=== PATIENT | female | born 1995 ===

== ENCOUNTER 2020-10-11 15:49 | Emergency (ER) | payer SELFPAY ==
[2020-10-11 18:33] VITALS: BP 109/72
[2020-10-11 21:00] LABS: Alanine Aminotransferase 12 units/L (7-56); Albumin 4.5 g/dL (3.9-5); Blood Urea Nitrogen 14 mg/dL (7-17); Hemolysis Index 5
[2020-10-11 21:01] LABS: BUN/Creatinine Ratio 28
[2020-10-11 21:04] LABS: Basophils % (Auto) 0.3 % (0.0-1.8); Eosinophils % (Auto) 0.3 % (0.0-4.3); Hematocrit 30.5 % (30.3-42.9); Hemoglobin 9.3 gm/dl (10.1-14.3); Lymphocytes # (Auto) 2.1 K/mm3 (1.2-5.4); Lymphocytes % (Auto) 23.5 % (13.4-35.0); Mean Corpuscular HGB Conc 31 % (30-34); Monocytes # (Auto) 0.8 K/mm3 (0.0-0.8); Monocytes % (Auto) 8.4 % (0.0-7.3); Platelet Count 248 K/mm3 (140-440); Red Blood Count 4.77 M/mm3 (3.65-5.03); Red Cell Distribution Width 17.8 % (13.2-15.2)
[2020-10-11 21:06] LABS: Mean Corpuscular Volume 64 fl (79-97)
--- NOTE | 2020-10-11 21:22 | Emergency Department Report ---
ED Abdominal Pain HPI - General Chief Complaint: Abdominal Pain Stated Complaint: WEAK Time Seen by Provider: 10/11/20 19:56 Source: patient Mode of arrival: Ambulatory Limitations: No Limitations - History of Present Illness Initial Comments: This is a 25-year-old female without any past medical history who presents to the ED complaining of epigastric abdominal pain and lower abdominal pain x2 to 3 days. Patient states that about 3 days ago she was playing with her ring and accidentally swallowed it. Patient states that she hasn't seen n eeding a stool. Patient states that she hasn't seen any blood in the stool as well. Patient states she is also has some nausea and vomiting with fever. MD Complaint: abdominal pain Severity scale (0 -10): 10 - Related Data Previous Rx's Medication Instructions Recorded Last Taken Type Famotidine [Pepcid] 20 mg PO BID #20 tablet 10/11/20 Unknown Rx Ondansetron [Zofran ODT TAB] 8 mg PO Q12HR #30 tab.rapdis 10/11/20 Unknown Rx ED Review of Systems ROS: Stated complaint: WEAK Other details as noted in HPI Comment: All other systems reviewed and negative ED Past Medical Hx - Past Medical History Previous Medical History?: No - Medications Home Medications: Home Medications Medication Instructions Recorded Confirmed Last Taken Type Famotidine [Pepcid] 20 mg PO BID #20 tablet 10/11/20 Unknown Rx Ondansetron [Zofran ODT TAB] 8 mg PO Q12HR #30 tab.rapdis 10/11/20 Unknown Rx ED Physical Exam - General Limitations: No Limitations General appearance: alert, in no apparent distress - Head Head exam: Present: atraumatic, normocephalic - Eye Eye exam: Present: normal appearance - ENT ENT exam: Present: mucous membranes moist - Neck Neck exam: Present: normal inspection - Respiratory Respiratory exam: Present: normal lung sounds bilaterally. Absent: respiratory distress - Cardiovascular Cardiovascular Exam: Present: regular rate, normal rhythm. Absent: systolic murmur, diastolic murmur, rubs, gallop - GI/Abdominal GI/Abdominal exam: Present: soft, tenderness (Mild tenderness to palpation.), normal bowel sounds. Absent: distended, guarding, rebound, mass - Extremities Exam Extremities exam: Present: normal inspection, full ROM - Back Exam Back exam: Present: normal inspection, full ROM. Absent: CVA tenderness (R), CVA tenderness (L) - Neurological Exam Neurological exam: Present: alert, oriented X3, normal gait - Psychiatric Psychiatric exam: Present: normal affect, normal mood - Skin Skin exam: Present: warm, dry, intact, normal color. Absent: rash ED Course Vital Signs 10/11/20 10/11/20 18:32 23:32 Temperature 98.1 F Pulse Rate 93 H 74 Respiratory 18 16 Rate Blood Pressure 109/72 [Right] O2 Sat by Pulse 97 99 Oximetry ED Medical Decision Making - Lab Data Result diagrams: 10/11/20 20:25 10/11/20 20:25 - Radiology Data Radiology results: report reviewed, image reviewed CT ABDOMEN AND PELVIS WITHOUT CONTRAST INDICATION / CLINICAL INFORMATION: Patient complains of abd pain, Status-Post FB ingestion. TECHNIQUE: Axial CT images were obtained through the abdomen and pelvis without IV contrast. All CT scans at this location are performed using CT dose reduction for ALARA by means of automated exposure control. COMPARISON: None available. FINDINGS: LOWER CHEST: No significant abnormality. LIVER: No significant abnormality. GALLBLADDER: No significant abnormality. BILE DUCTS: No significant abnormality. PANCREAS: No significant abnormality. SPLEEN: No significant abnormality. ADRENALS: No significant abnormality. RIGHT KIDNEY / URETER: No significant abnormality. LEFT KIDNEY / URETER: No significant abnormality. STOMACH / SMALL BOWEL: No significant abnormality. COLON: No significant abnormality. APPENDIX: No significant abnormality. PERITONEUM: No free fluid. No free air. No fluid collection. LYMPH NODES: Reactive appearing lymph nodes noted in the right lower quadrant abdomen. No evidence of surrounding fat stranding. AORTA / ARTERIES: No significant abnormality. IVC / VEINS: No significant abnormality. URINARY BLADDER: Partially decompression or bladder. REPRODUCTIVE ORGANS: Physiologic changes are noted of the uterus with fluid in the endometrial cavity and bilateral ovaries. ADDITIONAL FINDINGS: No evidence of radiopaque retained foreign body within the abdomen. SKELETAL SYSTEM: No significant abnormality. No aggressive osseous lesions. IMPRESSION: 1. Mild reactive lymph nodes noted in the right lower quadrant abdomen may represent mesenteric adenitis. No evidence of acute appendicitis or fat stranding in the right lower quadrant. 2. Physiologic changes are noted of the uterus and bilateral ovaries. 3. No evidence of radiopaque retained foreign body within the abdomen. Signer Name: Dick Guillermo MD Signed: 10/11/2020 10:11 PM Workstation Name: [id number] Transcribed By: Dictated By: DICK GUILLERMO Electronically Authenticated By: DICK GUILLERMO Signed Date/Time: 10/11/202210 DD/ 06 - Medical Decision Making This 25-year-old female presented with foreign body/abdominal pain. Labs are within normal limits. CT scan shows no foreign bodies, see report above. Discussed findings with the patient. Discussed with patient's this could be inflammation of the bowel. Discussed appropriate increase hydration, Zofran for nausea Follow-up with a GI in 2 to 3 days. Patient was in no acute distress throughout ED stay. She was able to speak in clear sentences had no neurological deficit. Patient had no vomiting episode in the ED. Tolerate p.o. fluids. Vital signs are normal. At this time patient is safe for discharge Critical care attestation.: If time is entered above; I have spent that time in minutes in the direct care of this critically ill patient, excluding procedure time. ED Disposition Clinical Impression: Abdominal pain, Gastroenteritis Disposition: DC- TO HOME OR SELFCARE Is pt being admited?: No Does the pt Need Aspirin: No Condition: Stable Instructions: Viral Gastroenteritis, Adult, [id number], Abdominal Pain, Adult, [id number], Abdominal Pain (ED) Additional Instructions: Make sure to follow up with the primary care physician as discussed. Take all your medications as you've been prescribed. If you have any worsening symptoms or develop new symptoms please return to ED immediately. Prescriptions: Famotidine [Pepcid] 20 mg PO BID #20 tablet Ondansetron [Zofran ODT TAB] 8 mg PO Q12HR #30 tab.[email or web address] Referrals: PRIMARY CARE,MD [Primary Care Provider] - 3-5 Days [facility] [Provider Group] - 3-5 Days [facility] [Provider Group] - 3-5 Days Forms: Accompanied Note, Work/School Release Form(ED) Time of Disposition: 22:46 Print Language: GERMAN
--- NOTE | 2020-10-11 22:16 | Cat Scan Report ---
CT ABDOMEN AND PELVIS WITHOUT CONTRAST INDICATION / CLINICAL INFORMATION: Patient complains of abd pain, Status-Post FB ingestion. TECHNIQUE: Axial CT images were obtained through the abdomen and pelvis without IV contrast. All CT scans at [facility] location are performed using CT dose reduction for ALARA by means of automated exposure control. COMPARISON: None available. FINDINGS: LOWER CHEST: No significant abnormality. LIVER: No significant abnormality. GALLBLADDER: No significant abnormality. BILE DUCTS: No significant abnormality. PANCREAS: No significant abnormality. SPLEEN: No significant abnormality. ADRENALS: No significant abnormality. RIGHT KIDNEY / URETER: No significant abnormality. LEFT KIDNEY / URETER: No significant abnormality. STOMACH / SMALL BOWEL: No significant abnormality. COLON: No significant abnormality. APPENDIX: No significant abnormality. PERITONEUM: No free fluid. No free air. No fluid collection. LYMPH NODES: Reactive appearing lymph nodes noted in the right lower quadrant abdomen. No evidence of surrounding fat stranding. AORTA / ARTERIES: No significant abnormality. IVC / VEINS: No significant abnormality. URINARY BLADDER: Partially decompression or bladder. REPRODUCTIVE ORGANS: Physiologic changes are noted of the uterus with fluid in the endometrial cavity and bilateral ovaries. ADDITIONAL FINDINGS: No evidence of radiopaque retained foreign body within the abdomen. SKELETAL SYSTEM: No significant abnormality. No aggressive osseous lesions. IMPRESSION: 1. Mild reactive lymph nodes noted in the right lower quadrant abdomen may represent mesenteric adeni tis. No evidence of acute appendicitis or fat stranding in the right lower quadrant. 2. Physiologic changes are noted of the uterus and bilateral ovaries. 3. No evidence of radiopaque retained foreign body within the abdomen. Signer Name: Rad Philippe MD Signed: 10/11/2020 10:11 PM Workstation Name: [id number]
== END 2020-10-11 23:32 | disposition home or self-care (01) ==
LOC: ED 15:49
DX: K52.9 Noninfective gastroenteritis and colitis, unspecified (principal); Z79.899 Other long term (current) drug therapy
CPT/HCPCS: 36415; 74176; 80053; 84702; 85025; 99284